=== PATIENT | female | born 1945 | race Caucasian/White ===

== ENCOUNTER 2018-11-28 12:16 | Inpatient (IN) | payer OTHER, MEDICARE ==
[~2018-11-28] VITALS: Ht 165.1 cm; Wt 56.9 kg
[~2018-11-28 12:16] MED LIST: ADVAIR 250-501 EACH INH; ADVAIR 500-501 EACH INH; ALLEGRA ALLERG180 MG PO; ANTIVERT25 M1 PO; ANTIVERT25 MG PO; ASPIRIN PO; ASPIRIN81 M2 PO; ATROVENT15 ML NS; ATROVENT30 ML NS; CALCIUM CIT PO; CALCIUM CITRAT250 MG PO; CIPROFLOXACIN500 M1 PO; DAYPRO600 MG; FISH OIL 1,001000 M1 PO; MAGNES; MECLIZINE HCL25 M1 PO; NEXIUM40 MG PO; OMEGA-3100 MG; OMEPRAZOLE40 MG PO; PROAIR HFA8.5 GM INH; PROVENTIL; PYRIDIUM200 MG PO; SINGULAIR 10 MG10 MG PO; TRANSDERM-SCO1 PATC1 TD; VALIUM2 MG PO; VITAMIN B-12500 MCG PO; VITAMIN D-32000 UNIT PO; ZINC10 MG; ZOCOR 20 MG TAB20 M1 PO; ZOFRAN ODT4 MG PO
--- NOTE | 2018-11-28 12:32 | EKG ---
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: RITA : 1945 Requested By: Anyi Stock Order Number: [id number] MD: Raheel Sanchez Measurements Intervals [place] Rate: 179 P: UT: QRS: 30 QRSD: 107 T: 51 QT: 264 QTc: 456 Interpretive Statements Atrial fibrillation with rapid V-rate Abnormal R-wave progression, early transition Compared to ECG 10/26/2014 13:53:46 Sinus rhythm no longer present Electronically Signed On 11-28-2018 12:32:03 CDT by Raheel Sanchez [email or web address] <ELECTRONICALLY SIGNED> By: Raheel Sanchez MD, [facility] 11/28/18 1232 1221 1221 Raheel Sanchez MD, FACC /EPI
[2018-11-28 12:37] LABS: ABSOLUTE NEUTROPHILS 4.2 thou/uL (1.4-8.2); BASOPHILS 0.8 % (0.0-2.0); EOSINOPHILS 0.7 % (0.0-3.0); HEMATOCRIT 43.3 % (37.0-47.0); HEMOGLOBIN 13.9 gm/dL (12.0-15.0); LYMPHOCYTES 21.1 % (24.0-44.0); MCH 27.5 pg (26.0-34.0); MCV 85.9 fL (80.0-100.0); MONOCYTES 9.5 % (1.0-8.0); PLATELET COUNT 262 thou/uL (150-400); POLYS 67.9 % (36.0-66.0); RBC 5.05 mil/uL (4.20-5.00); RDW 15.6 % (10.5-14.5); WBC 6.2 thou/uL (4.0-11.0)
[2018-11-28 12:45] LABS: CALCIUM 10.4 mg/dL (8.5-10.1); CREATININE 0.6 mg/dL (0.6-1.0); POTASSIUM 3.9 mmol/L (3.5-5.1)
[2018-11-28 12:51] LABS: TOTAL BILIRUBIN 0.3 mg/dL (<0.1-1.0)
[2018-11-28 13:28] LABS: APTT 48.5 Seconds (24.5-32.8); INR 1.3; PROTIME 13.7 Seconds (9.3-11.4)
[2018-11-28] MEDS ORDERED: TYLENOL EXTRA500 MG PO (13:33)
[2018-11-28] MEDS ORDERED: OMEPRAZOLE40 MG PO (13:36)
[2018-11-28] MEDS ORDERED: REFRESH OPTIVE10 ML OPHTHALMIC (13:39)
[2018-11-28] MEDS ORDERED: ALLER-EASE180 MG PO (13:40)
[2018-11-28] MEDS ORDERED: FLOVENT DISKUS50 MCG IH (13:41)
[2018-11-28] MEDS ORDERED: IPRATROPIUM BRO15 ML NASAL (13:42)
[2018-11-28] MEDS ORDERED: IPRATROPIU0.2 MG/1 M INH (13:43)
[2018-11-28] MEDS ORDERED: PROAIR HFA8.5 GM INH (13:44)
[2018-11-28] MEDS ORDERED: PROBIOTIC1 EAC1 PO (13:44)
[2018-11-28] MEDS ORDERED: XARELTO20 MG PO (13:44)
[2018-11-28] MEDS ORDERED: ZOCOR20 MG PO (13:45)
[2018-11-28] MEDS ORDERED: SYMBICORT80 MCG/4.1 INH (13:45)
[2018-11-28] MEDS ORDERED: IRON325 PO (13:45)
[2018-11-28] MEDS ORDERED: CRANBERRY200 MG PO (13:46)
[2018-11-28 15:21] VITALS: BP 105/82
--- NOTE | 2018-11-28 16:41 | NUR ---
PATIENT ADMITTED TO ROOM AT THIS TIME. SHE IS ALERT ORIENTED X4. SHE DENIES PAIN WHEN ASKED. SHE DOES HAVE AFIB WITH RVR AND HR AT THIS TIME IS 99. ENCOURAGED TO CALL WITH ALL TRANSFERS FROM BED TO MINIMIZE FALLS. WILL CONT WITH PLAN OF CARE.
[2018-11-28 19:12] VITALS: BP 107/51
--- NOTE | 2018-11-29 01:06 | NUR ---
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
[2018-11-29 04:23] VITALS: BP 126/75
[2018-11-29 05:15] LABS: HEMATOCRIT 35.8 % (37.0-47.0); MCH 27.9 pg (26.0-34.0); MCHC 32.6 g/dL (28.0-37.0); MCV 85.5 fL (80.0-100.0); RBC 4.19 mil/uL (4.20-5.00); RDW 15.8 % (10.5-14.5); WBC 5.2 thou/uL (4.0-11.0)
[2018-11-29 05:16] LABS: HEMOGLOBIN 11.7 gm/dL (12.0-15.0)
[2018-11-29 05:41] LABS: ANION GAP 6 mmol/L (7-16); BUN 11 mg/dL (7-18); CHLORIDE 106 mmol/L (98-107); CO2 30 mmol/L (21-32); CREATININE 0.4 mg/dL (0.6-1.0); GLUCOSE 91 mg/dL (74-106); POTASSIUM 4.4 mmol/L (3.5-5.1); SODIUM 142 mmol/L (136-145); TROPONIN-I <0.06 ng/mL (<0.06)
[2018-11-29 08:00] VITALS: BP 113/45
--- NOTE | 2018-11-29 08:18 | HC ---
[facility] [place] [address] CONSULTATION Name: LUCI ZAVALA Room #: 200-I ADM IN ..#: [id number] Admission: 11/28/18 Attend Phys: Goran Holbrook MD Discharge: Date of : 45 Report #: [id number] THIS REPORT FOR: //name// CC: Goran Ni Aamodt DATE OF SERVICE: 11/28/2018 REASON FOR CONSULTATION: Atrial fibrillation. HISTORY OF PRESENT ILLNESS: The patient is a 73-year-old woman with a history of paroxysmal atrial fibrillation. Her history comes from the patient, family and review of provided outpatient records which are summarized in the note. In 2012, she had partial pneumonectomy for cancer. This recurred in 2017 and she underwent radiation therapy. This was followed by right pneumonectomy for a variety of complications including fungal pneumonia. In the setting of right pneumonectomy, she developed atrial fibrillation, was placed on amiodarone and rivaroxaban. She converted to sinus rhythm. She has close followup through Cardiology. Within the past 6 months, she has had an echocardiogram, which she reports was normal, and stress testing, which was also normal. Her amiodarone was used for about 2-3 months after the initial onset in 08/2017. It was discontinued due to use of antifungal medicines for her fungal pneumonia. A recent 30-day event recorder, she reports demonstrated paroxysms of atrial fibrillation. These were clinically asymptomatic. No medicine changes were made. She now presents with a rapid heartbeat with associated lightheadedness and full sensation in her chest. She was seen in the Emergency Department where she was found to be in atrial fibrillation with a rapid ventricular response. She was treated with Cardizem and has subsequently converted to sinus rhythm. She currently feels well. ALLERGIES: There are no known drug allergies. MEDICATIONS: Include Xarelto 20 mg daily, simvastatin 20 mg daily, Singulair, omeprazole 20 mg daily, Symbicort, ProAir HFA, and Atrovent nebulizer. PAST MEDICAL HISTORY: Medical records have been reviewed and include a history of lung cancer with radiation, pneumonectomy, total abdominal hysterectomy, appendectomy, cholecystectomy. SOCIAL HISTORY: She is a former smoker. . FAMILY HISTORY: Unremarkable for premature coronary artery disease. REVIEW OF SYSTEMS: All systems negative except as that noted above. PHYSICAL EXAMINATION: [facility] [address] [place] [address] CONSULTATION Name: LUCI ZAVALA Room #: 200-I [facility] IN ..#: [id number] Admission: 11/28/18 Attend Phys: Goran Holbrook MD Discharge: Date of : 45 Report #: [id number] GENERAL: A pleasant woman in no distress. VITAL SIGNS: Blood pressure is 105/80, heart rate of 90 and regular. She is afebrile, 5 feet tall, 116 pounds. HEENT: There is neither xanthelasma, subcutaneous xanthomata, oral mucosal or digital cyanosis or kyphoscoliosis present. CHEST: Clear to auscultation and percussion on the left. No breath sounds on the right. CARDIAC: Regular rate and rhythm with a medially displaced PMI. ABDOMEN: Soft and nontender. EXTREMITIES: Without cyanosis, clubbing or edema. Radial pulses are 2+. NEUROLOGIC: She is alert with a nonfocal exam. LABORATORY DATA: White count 6.2, hemoglobin 13.9, platelet count 362. Sodium 140, potassium 3.9, creatinine 0.6. Troponin 0. Chest x-ray demonstrates volume loss of the right hemithorax with complete opacification. IMPRESSION: 1. Paroxysmal atrial fibrillation, now sinus rhythm. 2. Lung cancer with right pneumonectomy. 3. Asthma and chronic obstructive pulmonary disease; prior tobacco dependency. 4. Dyslipidemia. RECOMMENDATIONS: 1. Change from intravenous to oral Cardizem. Add flecainide in light of a normal echo and recent normal stress testing. 2. Continue anticoagulation; rivaroxaban with the evening meal. 3. Follow up with Cardiology within the next several weeks. I discussed these issues with Luci and her family. Thank you for asking me to participate in her care. <ELECTRONICALLY SIGNED> By: Raheel Sanchez MD, FACC 11/29/18 0818 1701 0208 Raheel Sanchez MD, FACC /nt
--- NOTE | 2018-11-29 08:43 | EKG ---
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: jllidia : 1945 Requested By: Raheel Sanchez Order Number: [id number] MD: Raheel Sanchez Measurements Intervals [place] Rate: 85 P: 48 [place]: 190 QRS: 29 QRSD: 90 T: 51 QT: 374 QTc: 445 Interpretive Statements Sinus arrhythmia Normal tracing Compared to ECG 11/28/2018 12:21:07 Atrial fibrillation no longer present Electronically Signed On 11-29-2018 8:43:38 CDT by Raheel Sanchez [email or web address] <ELECTRONICALLY SIGNED> By: Raheel Sanchez MD, [facility] 11/29/18 0843 05 05 Raheel Sanchez MD, [facility] /EPI
--- NOTE | 2018-11-29 08:48 | EKG ---
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
[2018-11-29 12:00] VITALS: BP 89/54
[2018-11-29 13:44] VITALS: BP 89/54
--- NOTE | 2018-11-29 14:14 | NUR ---
ASSUMED CARE PT AT SHIFT CHANGE. ASSESSMENTS CHARTED. MEDS GIVEN PER MAY. PT ALERT AND ORIENTED, VSS, DENIES PAIN, O2 SATS WNL ON ROOM AIR. NO S/SX OF CARDIAC OR RESP DISTRESS NOTED. PT UP AD SHAE PER PT THIS SHIFT. SR ON MONITOR. DC ORDERS ACKNOWLEDGED AND IMPLEMENTED. DC PAPERWORK DISCUSSED WITH PT, COMMUNICATES UNDERSTANDING. IV REMOVED, TELE REMOVED. PT LEFT UNIT AT APPROX 1415 WITH ALL BELONGINGS.
--- NOTE | 2018-11-29 15:32 | NUR ---
Pt DISCHARGED BEFORE O.T. WAS ABLE TO EVALUATE ORDERED.
--- NOTE | 2018-11-30 07:44 | NUR ---
ORDER REC'D FOR OT EVAL. PATIENT DISCHARGED PRIOR TO COMPLETION OF EVAL.
== END 2018-11-29 14:15 | disposition home or self-care (01) | DRG 308 ==
LOC: ER 12:16 → EROBS 13:29 → 2N 13:29 → ENTRNSPT 11-29 14:03 → EDTRNSPTSTS 11-29 14:07 → 2N 11-29 14:15
PROVIDERS: Physician Assistant; ADMIT Hospitalist
DX: I48.0 Paroxysmal atrial fibrillation (principal); E43 Unspecified severe protein-calorie malnutrition; C34.91 Malignant neoplasm of unspecified part of right bronchus or lung; E78.5 Hyperlipidemia, unspecified; J44.9 Chronic obstructive pulmonary disease, unspecified; K21.9 Gastro-esophageal reflux disease without esophagitis; Z79.01 Long term (current) use of anticoagulants; Z90.49 Acquired absence of other specified parts of digestive tract; Z90.710 Acquired absence of both cervix and uterus; Z87.442 Personal history of urinary calculi; Z79.82 Long term (current) use of aspirin; Z79.899 Other long term (current) drug therapy; Z88.5 Allergy status to narcotic agent; Z88.8 Allergy status to other drugs, medicaments and biological substances; Z88.7 Allergy status to serum and vaccine
CPT/HCPCS: 10081